=== PATIENT | male | born 1995 | race American Indian/Alaskan Native ===

== ENCOUNTER 2020-09-02 03:01 | Emergency (ER) | payer SELFPAY ==
[2020-09-02 03:24] VITALS: BP 148/73
--- NOTE | 2020-09-02 07:35 | Emergency Department Report ---
- General Chief Complaint: Upper Respiratory Infection Stated Complaint: FLU SX Time Seen by Provider: 09/02/20 07:18 Source: patient Mode of arrival: Ambulatory Limitations: No Limitations - History of Present Illness Initial Comments: Is a pleasant 24-year-old male presents the emerge department chief complaint of subjective fever, chills, body aches, sore throat and malaise that started approximately 12 hours ago. Patient denies any sick contacts. Patient denies any associated headache, dizziness, blurry vision, nausea, vomiting, diarrhea, chest pain, shortness of breath, weakness or any other associated symptoms. He denies any past medical history, current medication use or known allergies to medications. - Related Data Previous Rx's Medication Instructions Recorded Last Taken Type Benzonatate [Tessalon Perles] 100 mg PO Q8HR #30 capsule 09/02/20 Unknown Rx Ibuprofen [Motrin] 800 mg PO Q8HR #30 tablet 09/02/20 Unknown Rx Allergies Allergy/AdvReac Type Severity Reaction Status Date / Time No Known Allergies Allergy Unverified 09/02/20 04:39 ED Review of Systems ROS: Stated complaint: FLU SX Other details as noted in HPI Comment: All other systems reviewed and negative Constitutional: see HPI, fever, malaise. denies: chills Eyes: denies: eye pain, eye discharge, vision change ENT: as per HPI, throat pain, congestion. denies: ear pain Respiratory: no symptoms reported, cough. denies: shortness of breath, wheezing Cardiovascular: denies: chest pain, palpitations Endocrine: no symptoms reported Gastrointestinal: denies: abdominal pain, nausea, diarrhea Genitourinary: denies: urgency, dysuria Musculoskeletal: denies: back pain, joint swelling, arthralgia Skin: denies: rash, lesions Neurological: denies: headache, weakness, paresthesias Psychiatric: denies: anxiety, depression Hematological/Lymphatic: denies: easy bleeding, easy bruising ED Past Medical Hx - Past Medical History Previous Medical History?: No - Surgical History Past Surgical History?: No - Social History Smoking Status: Former Smoker Substance Use Type: Alcohol - Medications Home Medications: Home Medications Medication Instructions Recorded Confirmed Last Taken Type Benzonatate [Tessalon Perles] 100 mg PO Q8HR #30 capsule 09/02/20 Unknown Rx Ibuprofen [Motrin] 800 mg PO Q8HR #30 tablet 09/02/20 Unknown Rx ED Physical Exam - General Limitations: No Limitations General appearance: alert, in no apparent distress - Head Head exam: Present: atraumatic, normocephalic - Eye Eye exam: Present: normal appearance, PERRL, EOMI Pupils: Present: normal accommodation - ENT ENT exam: Present: normal exam, normal orophraynx, mucous membranes moist - Neck Neck exam: Present: normal inspection, full ROM. Absent: tenderness, meningismus - Respiratory Respiratory exam: Present: normal lung sounds bilaterally. Absent: respiratory distress, wheezes, rales, rhonchi, stridor - Cardiovascular Cardiovascular Exam: Present: regular rate, normal rhythm, normal heart sounds. Absent: systolic murmur, diastolic murmur, rubs, gallop - GI/Abdominal GI/Abdominal exam: Present: soft, normal bowel sounds. Absent: distended, tenderness, guarding, rebound, rigid - Rectal Rectal exam: Present: deferred - Extremities Exam Extremities exam: Present: normal inspection, full ROM, normal capillary refill. Absent: tenderness, calf tenderness (Negative Homans' sign bilaterally, no posterior calf tenderness, no lower extremity edema) - Back Exam Back exam: Present: normal inspection, full ROM. Absent: tenderness, CVA tenderness (R), CVA tenderness (L) - Neurological Exam Neurological exam: Present: alert, oriented X3, normal gait - Psychiatric Psychiatric exam: Present: normal affect, normal mood - Skin Skin exam: Present: warm, dry, intact, normal color. Absent: rash ED Course Vital Signs 09/02/20 03:20 Temperature 99.6 F Pulse Rate 108 H Respiratory 16 Rate Blood Pressure 148/73 O2 Sat by Pulse 96 Oximetry ED Medical Decision Making - Radiology Data Radiology results: image reviewed interpreted by me: No pneumonia, no pneumothorax, no pneumomediastinum, no pneumoperitoneum, no focal consolidations, bone window appears normal. No acute findings. - Medical Decision Making Patient is nontoxic in no acute distress. Vital signs are stable. Patient had no Covid exposures that he is aware of and no risk factors otherwise. Patient has a low Wells risk with no chest pain or shortness of breath, no pleuritic pain, no hemoptysis, no clinical signs of DVT making my suspicion for PE at this time very low. Chest x-ray was ordered and shows no acute findings. Suspect the patient's symptoms are secondary to a viral syndrome potentially related to the flu. Recommended supportive treatment follow-up with the primary care doctor. Patient was instructed to return to the emergency department if he develops any change or worsening symptoms. He verbalized understanding of the diagnosis, treatment plan and follow-up instructions and all his questions were answered. - Differential Diagnosis influenza, COVID-19, PE, Pneumonia Critical care attestation.: If time is entered above; I have spent that time in minutes in the direct care of this critically ill patient, excluding procedure time. ED Disposition Clinical Impression: Viral URI, Viral syndrome Disposition: DC TO HOME OR SELFCARE Is pt being admited?: No Condition: Stable Instructions: Upper Respiratory Infection (ED) Prescriptions: Ibuprofen [Motrin] 800 mg PO Q8HR #30 tablet Benzonatate [Tessalon Perles] 100 mg PO Q8HR #30 capsule Referrals: PRIMARY CARE, [Primary Care Provider] - 3-5 Days [facility] [Provider Group] - 3-5 Days Forms: Work/School Release Form(ED) Time of Disposition: 07:34
--- NOTE | 2020-09-02 08:39 | XRay Report ---
CHEST 2 VIEWS INDICATION: Flu, SOB, Upper Resp Infection. COMPARISON: None FINDINGS: Support devices: None. Heart: Within normal limits. Lungs/pleura: No acute air space or interstitial disease. No pneumothorax. Additional findings: None. IMPRESSION: No acute findings. Signer Name: Marquise Diego Jr, MD Signed: 09/02/2020 8:35 AM Workstation Name: [id number]
== END 2020-09-02 08:18 | disposition home or self-care (01) ==
LOC: ED 03:01
DX: J06.9 Acute upper respiratory infection, unspecified (principal); B34.9 Viral infection, unspecified; Z87.891 Personal history of nicotine dependence; Z79.899 Other long term (current) drug therapy
CPT/HCPCS: 71046; 99283